=== PATIENT | female | born 1950 | race Caucasian/White ===

== ENCOUNTER 2017-07-19 08:32 | Inpatient (IN) ==
[2017-07-19] MEDS ORDERED: SALINE FLUSH 10ml SYRINGE ONE (08:49)
[2017-07-19] MEDS ORDERED: IOHEXOL 350mg/ml 75ml INJECTION ONE (08:49)
--- NOTE | 2017-07-19 09:33 | CT Scan Report ---
Indication: R07.1 PROCEDURE: CT angio pulm emboli: Encounter: Initial Comparison: Chest x-ray dated July 18, 2017 Technique: Axial CT pulmonary angiographic phase images were performed through the chest after the administration of intravenous contrast. Coronal and Sagittal MIP reconstructed images were created and reviewed. Automated Exposure Control and Iterative Reconstruction dose reducing techniques were utilized. Contrast: Omnipaque 350 70 mL Findings: Pulmonary arteries: Exam is diagnostic to the subsegmental pulmonary arterial level. There are segmental and subsegmental pulmonary emboli in the right upper and middle lobes is also subsegmental embolus within a left upper lobe pulmonary artery branch as well. Other findings: Airspace consolidation within the anterior aspect of the left lower lobe corresponding to the finding on radiographs. Minimal basilar atelectasis. No pneumothorax. The central airways are patent. No axillary or mediastinal lymphadenopathy. Heart size is normal. No pericardial effusion. Small hiatal hernia. The upper abdomen shows cholelithiasis but no acute findings. Impression: Bilateral pulmonary emboli with small area of probable hemorrhage or pulmonary infarct in the left lower lobe. Results were called to the ordering physician at 0928 on July 19, 2017. .
[2017-07-19 10:21] VITALS: BMI 29.0
--- NOTE | 2017-07-19 11:11 | Ultrasound Report ---
Indication: RIGHT CALF PAIN PROCEDURE: US venous doppler LE BI: Encounter: Initial Comparison: None Technique: Color Doppler duplex and grayscale sonographic imaging of both lower extremities was performed. Findings: There is no evidence for acute deep venous thrombosis in either thigh. Specifically, serial graded compression was performed from the inguinal ligament to the popliteal bifurcation, bilaterally, demonstrating appropriate compressibility of the deep venous system. In addition, color and pulsed Doppler demonstrate appropriate spontaneous flow, variation with respiration, and augmentation with calf compression. At the ankle, normal flow is identified in the posterior tibial veins; these vessels are also normal in caliber. Impression: No evidence of acute DVT in either lower limb. .
[2017-07-19] MEDS: ACETAMINOPHEN 500 MG TABLET PO PRN ×2 (11:50→17:00)
[2017-07-19] MEDS ORDERED: WARFARIN 5 MG TABLET PO SCH (19:45)
[2017-07-19] MEDS: ENOXAPARIN 80 MG/0.8 ML INJECTION SQ SCH (20:25)
--- NOTE | 2017-07-19 21:39 | History and Physical ---
HPI The patient is a 66-year-old female who came to the office yesterday, 07/18/2017 , to see Dr. Sourav Pearl, her PCP. At that time the patient presented with cough as well as chest discomfort located in the left lower lobe ribcage with deep inspiration. I saw this patient about two weeks ago with symptoms consistent with viral illness. She was treated for acute bronchitis with steroid and inhaler. Most of her symptoms resolved except for the persistent cough. Now she is complaining of chest discomfort when she takes a deep breath. She is not really having significant shortness of breath - she is just tired all the time. Because of the chest discomfort we did an chest x-ray in the office yesterday that showed a questionable left lower lobe lesion. This was followed by a D-dimer which was high at 1656. Because of that we had the patient come to the hospital to be infusion unit for a Lovenox injection last night since we were not able to do a CT chest last night due to the late hour on an outpatient basis. The patient received Lovenox injection subcutaneously and was sent home and was asked to come back to the hospital this morning for another injection of Lovenox followed by PE angiogram. The CT did show pulmonary embolism. Because of this the patient has been admitted to [facility] at my request for further evaluation and management. PAST MEDICAL HISTORY 1. Hypertension. 2. Dyslipidemia. 3. Obesity. PAST SURGICAL HISTORY . FAMILY HISTORY Coronary artery disease. Mother had a CABG as well as brother. No family member has breast cancer. SOCIAL HISTORY The patient is with adult children. CURRENT MEDICATIONS None listed. ALLERGIES No known drug allergies. REVIEW OF SYSTEMS As per HPI. Denies hemoptysis. No significant shortness of breath. No fever or chills. No back pain. No vomiting or coughing blood. No nausea or vomiting. No blurry vision. No diplopia. PHYSICAL EXAM VITAL SIGNS: Blood pressure 97/60, pulse 68, temperature 98.0, respirations 20, oxygen saturation 93% on room air. GENERAL: The patient looks comfortable. She does not appear to be in acute respiratory distress. HEENT: Unremarkable. NECK: Supple. No JVD or bruit. CHEST: Lungs are clear to auscultation bilaterally. No wheezing. CARDIOVASCULAR: Regular rate and rhythm. No murmur. ABDOMEN: Soft, nontender. No mass is palpable. No organomegaly. Bowel sounds are normoactive. EXTREMITIES: No cyanosis, clubbing or edema. NEUROLOGIC: The patient is awake, alert and oriented x 3. No focal neurologic deficit. LABORATORY (yesterday) WBC 10.2, hemoglobin 12.8, platelet count 288,000. D-dimer 1656. BMP normal. Glucose 115. CT PE angiogram today showed bilateral pulmonary emboli with small area of probable hemorrhage or pulmonary infarct in left lower lobe. ASSESSMENT 1. Acute bilateral pulmonary embolism. 2. Pleuritic chest pain due to #1. 3. Right calf pain. Venous Doppler was done today and was negative for DVT. 4. Persistent cough due to #1. PLAN Patient is to be admitted on an outpatient basis to the medical floor for management with Lovenox and will start patient on warfarin tonight. Follow up with CBC in the morning. Will have Pharmacy monitor the INR using pharmacy protocol. Will have patient education started for that as well. Will consult Case Management in the morning to see what insurance options as far as home anticoagulation can be afforded to use for this patient. ELINOR
[2017-07-20] MEDS: PANTOPRAZOLE 40 MG TABLET PO SCH (06:33)
[2017-07-20] MEDS: ENOXAPARIN 80 MG/0.8 ML INJECTION SQ SCH ×2 (08:51→21:07)
[2017-07-20] MEDS ORDERED: WARFARIN 5 MG TABLET PO SCH (12:00)
[2017-07-20] MEDS ORDERED: WARFARIN - PHARMACY CONSULT MC ONE (12:00)
[2017-07-20] MEDS ORDERED: WARFARIN 6 MG TABLET PO ONE (13:16)
--- NOTE | 2017-07-20 13:20 | Pharmacy Consult ---
Pharmacy Consult-Warfarin - Laboratory Information 07/20/17 12:20 INR 1.13 - Consult Information COUMADIN CONSULT (Initial): Dx: P.E. Baseline INR = 1.13. Will give Warfarin 6mg today. Thank you.
[2017-07-21 00:27] VITALS: O2SAT 93
[2017-07-21] MEDS: PANTOPRAZOLE 40 MG TABLET PO SCH (06:06)
--- NOTE | 2017-07-21 07:28 | Pharmacy Consult ---
Pharmacy Consult-Warfarin - Laboratory Information 07/20/17 07/21/17 12:20 04:28 INR 1.13 1.28 H - Consult Information We will give 6mg of warfarin p.o. today at noon. Modest gain in INR therefore same warfarin dose as yesterday. Thanks
[2017-07-21 08:20] VITALS: PULSE 64; RESP 16
[2017-07-21] MEDS: ENOXAPARIN 80 MG/0.8 ML INJECTION SQ SCH (08:57)
[2017-07-21] MEDS ORDERED: WARFARIN 6 MG TABLET PO SCH (12:00)
[2017-07-21 16:11] VITALS: BP 123/67; TEMP 97.9
--- NOTE | 2017-07-22 15:28 | Discharge Summary ---
FINAL DIAGNOSES 1. Bilateral pulmonary embolism with small area of probable hemorrhagic pulmonary infarct in left lower lobe. 2. Dyspnea. 3. Pleuritic chest pain. 4. Right calf pain with negative venous Doppler. 5. Persistent cough. CONSULTS None. REASON FOR ADMISSION The patient is a 66-year-old female who presented to the office a day before the day of admission with a chief complaint basically of cough with chest discomfort, especially with deep inspiration involving the left lower lobe/ ribcage. D-dimer was done which was elevated and therefore the patient was summoned back to the hospital and had Lovenox given to her the night before and then had a CT done the following day. The CT was considered bilateral pulmonary embolism. Therefore, the patient was admitted to [facility] for further evaluation and recommendations. This was her first episode of thromboembolism. On physical examination she looked comfortable overall. Blood pressure was 97/ 60 with pulse 68, temperature 98.0, respirations 20, oxygen saturation 93% on room air. The rest of her physical examination was unremarkable. LABORATORY D-dimer was 1656. BNP was normal. IMAGING CT angiogram showed bilateral pulmonary embolism. HOSPITAL COURSE The patient was admitted to [facility] medical floor under the care of Dr. Sourav Pearl. The patient was started on Lovenox subcutaneously as well as warfarin. She was not quite therapeutic before dismissal. INR was 1.28 on 07/21/2017 early in the morning. The patient decided she wanted to take Xarelto as opposed to continuing warfarin. She is medically stable. Her chest discomfort is getting better. Her cough is getting better. She was not needing any oxygen. She was walking and eating well without any complications. Therefore , she was deemed stable enough to dismiss to home on 07/21/2017 and was dismissed in good and stable condition as of that time. DISCHARGE MEDICATIONS 1. Xarelto 15 mg p.o. b.i.d. for three weeks, then will go to 20 mg one tablet daily at that time. 2. Protonix 40 mg p.o. daily. DIET Regular diet. FOLLOWUP The patient will follow up with Dr. Sourav Pearl in the office in seven to ten days. Return to the office or the ER if any complications or new symptoms affecting her shortness of breath. ELINOR
== END 2017-07-21 17:40 | disposition home or self-care (01) | DRG 176 ==
LOC: IMA.CT 08:32 → MED 09:47
PROVIDERS: ADMIT Family Medicine; ATTEND Family Medicine